=== PATIENT | female | born 1990 | race Caucasian/White ===

== ENCOUNTER 2022-07-14 12:26 | Emergency (ER) | payer MEDICAID ==
[~2022-07-14] VITALS: Ht 165.1 cm; Wt 68.0 kg
--- NOTE | 2022-07-14 12:40 | NUR ---
PT BIBRA FROM HOME C/O L ANKLE PAIN S/P MECHANICAL TRIP AND FALL AT HOME. 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 VSS. AWAITING MD DICKERSON.
--- NOTE | 2022-07-14 14:23 | NUR ---
DR POOLE AT BEDSIDE FOR EVAL.
[2022-07-14] MEDS ORDERED: HYDROCODONE/APAP 5/325MG TABLET PO ONE (14:30)
[2022-07-14] MEDS ORDERED: HYDROCODONE/APAP 5/325MG TABLET ONE (14:53)
--- NOTE | 2022-07-14 15:40 | NUR ---
CALLED GLORIA JO WILL CALL US BACK.
--- NOTE | 2022-07-14 16:46 | NUR ---
CALLED [facility] [phone] BHAVIK JO WILL BE PAGED.
[2022-07-14] MEDS ORDERED: IBUP-1957 PO (17:19)
[2022-07-14] MEDS ORDERED: HYDR-3972 PO (17:19)
[2022-07-14 18:18] VITALS: BP 108/60
--- NOTE | 2022-07-14 18:18 | NUR ---
Patient discharged to home in stable condition. Written and verbal after care instructions given. Patient verbalizes understanding of instruction.
== END 2022-07-14 18:18 | disposition home or self-care (01) ==
LOC: ER 13:19
DX: S82.55XA Nondisplaced fracture of medial malleolus of left tibia, initial encounter for closed fracture (principal); S82.832A Other fracture of upper and lower end of left fibula, initial encounter for closed fracture; F32.A Depression, unspecified; F41.9 Anxiety disorder, unspecified; Z88.0 Allergy status to penicillin; W01.0XXA Fall on same level from slipping, tripping and stumbling without subsequent striking against object, initial encounter; Y93.89 Activity, other specified; Y92.89 Other specified places as the place of occurrence of the external cause; Y99.8 Other external cause status
CPT/HCPCS: 71045-TC; 73610-TC; 73700-TC